=== PATIENT | female | born 1945 | race Caucasian/White ===

== ENCOUNTER → 2023-11-04 11:24 | Outpatient (REF) | payer MEDICARE, SELFPAY ==
[2023-11-04 17:59] LABS: Urine Albumin Negative (Neg - Trace); Urine Bilirubin Negative (Negative); Urine Character Slightly Cloudy (Clear); Urine Color Yellow; Urine Glucose Negative (Negative); Urine Ketone Negative (Negative); Urine Leukocyte 2+ (Negative); Urine Nitrite Positive (Negative); Urine Occult Blood Negative (Negative); Urine Urobilinogen Negative (Neg - 1+)
[2023-11-04 18:22] LABS: Urine Bacteria Few (Negative); Urine Red Blood Cell 0-2 /HPF (0-2)
== END ==
LOC: CLAB 11:24
PROVIDERS: ATTENDING PHYSICIAN Obstetrics & Gynecology
DX: N39.0 Urinary tract infection, site not specified (principal)
CPT/HCPCS: 81003; 81015; 87071; 87086; 87186

== ENCOUNTER → 2023-11-26 16:20 | Outpatient (REF) | payer MEDICARE, SELFPAY | LOC: REG 16:20 | PROVIDERS: ATTENDING PHYSICIAN Obstetrics & Gynecology; FAMILY PHYSICIAN Internal Medicine | DX: N39.0 Urinary tract infection, site not specified (principal) | CPT/HCPCS: 87077; 87086; 87186 ==

== ENCOUNTER → 2023-12-30 11:56 | Outpatient (REF) | payer MEDICARE, SELFPAY ==
[2023-12-30 12:27] LABS: Urine Albumin Negative (Neg - Trace); Urine Bilirubin Negative (Negative); Urine Character Clear (Clear); Urine Color Yellow; Urine Glucose Negative (Negative); Urine Ketone Negative (Negative); Urine Leukocyte Trace (Negative); Urine Nitrite Negative (Negative); Urine Occult Blood Negative (Negative); Urine Urobilinogen Negative (Neg - 1+); Urine pH 6.5 (5.0-9.0)
[2023-12-30 12:47] LABS: Urine Red Blood Cell 0-2 /HPF (0-2); Urine White Cell 0-2 /HPF (0-5)
== END ==
LOC: REG 11:56
PROVIDERS: ATTENDING PHYSICIAN Obstetrics & Gynecology; FAMILY PHYSICIAN Internal Medicine
DX: N39.0 Urinary tract infection, site not specified (principal)
CPT/HCPCS: 36415; 81003; 81015; 87086

== ENCOUNTER → 2024-02-04 12:07 | Outpatient (REF) | payer MEDICARE, SELFPAY ==
[2024-02-04 13:49] LABS: Urine Albumin Negative (Neg - Trace); Urine Bilirubin Negative (Negative); Urine Character Clear (Clear); Urine Color Yellow; Urine Glucose Negative (Negative); Urine Ketone Negative (Negative); Urine Leukocyte 2+ (Negative); Urine Nitrite Negative (Negative); Urine Occult Blood Negative (Negative); Urine Urobilinogen Negative (Neg - 1+); Urine pH 6.5 (5.0-9.0)
[2024-02-04 13:57] LABS: Urine Bacteria Many (Negative); Urine Red Blood Cell 0-2 /HPF (0-2); Urine White Cell 30-40 /HPF (0-5)
== END ==
LOC: REG 12:07
PROVIDERS: ATTENDING PHYSICIAN Obstetrics & Gynecology; FAMILY PHYSICIAN Internal Medicine
DX: N39.0 Urinary tract infection, site not specified (principal)
CPT/HCPCS: 81003; 81015; 87077; 87086; 87186

== ENCOUNTER → 2024-03-07 15:15 | Outpatient (REF) | payer MEDICARE, SELFPAY ==
[2024-03-07 16:21] LABS: Urine Albumin Negative (Neg - Trace); Urine Bilirubin Negative (Negative); Urine Character Clear (Clear); Urine Color Yellow; Urine Glucose Negative (Negative); Urine Ketone Negative (Negative); Urine Leukocyte 2+ (Negative); Urine Nitrite Negative (Negative); Urine Occult Blood 1+ (Negative); Urine Specific Gravity 1.015 (<1.030); Urine Urobilinogen Negative (Neg - 1+)
[2024-03-07 16:52] LABS: Urine Bacteria Moderate (Negative); Urine White Cell 50-60 /HPF (0-5)
== END ==
LOC: REG 15:15
PROVIDERS: ATTENDING PHYSICIAN Obstetrics & Gynecology
DX: N39.0 Urinary tract infection, site not specified (principal)
CPT/HCPCS: 81003; 81015; 87086; 87088; 87186

== ENCOUNTER → 2024-05-01 11:17 | Outpatient (REF) | payer MEDICARE, SELFPAY | LOC: EMG 11:17 | PROVIDERS: ATTENDING PHYSICIAN Orthopaedic Surgery Hand Surgery; FAMILY PHYSICIAN Internal Medicine | DX: G56.03 Carpal tunnel syndrome, bilateral upper limbs (principal); M48.02 Spinal stenosis, cervical region; R20.2 Paresthesia of skin | CPT/HCPCS: 95886; 95911 ==

== ENCOUNTER → 2024-07-06 11:22 | Outpatient (REF) | payer MEDICARE, SELFPAY | LOC: CLAB 11:22 | PROVIDERS: ATTENDING PHYSICIAN Obstetrics & Gynecology | DX: N39.0 Urinary tract infection, site not specified (principal) | CPT/HCPCS: 87086 ==

== ENCOUNTER → 2024-07-19 09:14 | Outpatient (REF) | payer MEDICARE, SELFPAY ==
[2024-07-19 11:11] LABS: Hematocrit 40.9 % (37.0-47.0); Hemoglobin 13.2 g/dL (12.0-16.0); Mean Corp Hgb Conc. 32.3 g/dL (33.0-37.0); Mean Corpuscular Hgb 30.6 pg (27.0-31.0); Mean Corpuscular Volume 94.9 fL (81.0-99.0); Mean Platelet Volume 12.5 fL (7.4-10.4); Platelet Count 174 10^3/uL (130-400); Red Blood Cell Count 4.31 10^6/uL (4.20-5.40); Red Cell Dist. Width 13.8 % (11.5-14.5); White Blood Cell Count 7.3 10^3/uL (4.8-10.8)
[2024-07-19 11:38] LABS: Blood Urea Nitrogen 18 mg/dl (7-17); Calcium 10.3 mg/dl (8.4-10.2); Carbon Dioxide 23 mmol/L (22-30); Chloride 104 mmol/L (98-107); Glucose 90 mg/dl (70-99); Potassium 4.6 mmol/L (3.5-5.1); Sodium 136 mmol/L (135-145); eGFR > 60.00
== END ==
LOC: SDSPAT 09:14
PROVIDERS: ATTENDING PHYSICIAN Obstetrics & Gynecology; FAMILY PHYSICIAN Internal Medicine
DX: Z01.818 Encounter for other preprocedural examination (principal)
CPT/HCPCS: 36415; 80048; 85027; 86850; 86900; 86901; 93005

== ENCOUNTER 2024-07-31 06:16 | Day surgery (SDC) | payer MEDICARE, SELFPAY ==
[2024-07-19 13:40] VITALS: BMI 22.2
--- NOTE | 2024-07-20 15:22 | PTCARENOTE ---
Abnormal ECG from 07/19/24, reviewed by Dr Santos, no further intervention requested.
[2024-07-31] VITALS (10 sets, daily range): BP systolic 126–156; BP diastolic 69–94; BMI 22.2
[2024-07-31] MEDS: NORMOSOL-R/PLASMALYTE-A 1000 IV (08:35)
[2024-07-31] MEDS: Pyridium 200 MG PO (08:37)
== END 2024-07-31 14:30 | disposition home or self-care (01) ==
LOC: SDS 06:16
PROVIDERS: ATTENDING PHYSICIAN Obstetrics & Gynecology
DX: N81.2 Incomplete uterovaginal prolapse (principal); N39.3 Stress incontinence (female) (male)
CPT/HCPCS: 57282; 57260; C1713

== ENCOUNTER → 2024-12-18 10:29 | Outpatient (REF) | payer MEDICARE, SELFPAY ==
[2024-12-18 11:42] LABS: Hematocrit 41.9 % (37.0-47.0); Hemoglobin 13.6 g/dL (12.0-16.0); Mean Corp Hgb Conc. 32.5 g/dL (33.0-37.0); Mean Corpuscular Volume 94.2 fL (81.0-99.0); Nucleated Red Blood Cells % 0 %; Platelet Count 189 10^3/uL (130-400); Red Cell Dist. Width 13.6 % (11.5-14.5)
[2024-12-18 12:19] LABS: ALT (SGPT) 17 U/L (0-35); AST (SGOT) 21 U/L (14-36); Albumin 4.2 g/dl (3.5-5.0); Alkaline Phosphatase 114 U/L (38-126); Blood Urea Nitrogen 19 mg/dl (7-17); Calcium 10.0 mg/dl (8.4-10.2); Carbon Dioxide 26 mmol/L (22-30); Chloride 108 mmol/L (98-107); Glucose 94 mg/dl (70-99); Potassium 4.6 mmol/L (3.5-5.1); Sodium 140 mmol/L (135-145); Total Protein 6.7 g/dl (6.3-8.2); eGFR > 60.00
== END ==
LOC: REG 10:29
PROVIDERS: ATTENDING PHYSICIAN Obstetrics & Gynecology; FAMILY PHYSICIAN Internal Medicine
DX: N39.0 Urinary tract infection, site not specified (principal); I10 Essential (primary) hypertension; E78.00 Pure hypercholesterolemia, unspecified
CPT/HCPCS: 36415; 80053; 84443; 85025; 87086

== ENCOUNTER → 2024-12-21 09:14 | Outpatient (REF) | payer MEDICARE, SELFPAY ==
[2024-12-21 10:39] LABS: HDL Cholesterol 58 mg/dl; LDL Cholesterol, Calculated 91 mg/dl; Very Low Density Lipoprotein 11 mg/dl (0-30)
== END ==
LOC: REG 09:14
PROVIDERS: ATTENDING PHYSICIAN Internal Medicine
DX: I10 Essential (primary) hypertension (principal); E78.00 Pure hypercholesterolemia, unspecified
CPT/HCPCS: 36415; 80061

== ENCOUNTER 2025-02-01 12:04 | Outpatient (RCR) | payer MEDICARE, SELFPAY | END 2025-02-01 23:59 | disposition home or self-care (01) | LOC: RPT 12:04 | PROVIDERS: ATTENDING PHYSICIAN Orthopaedic Surgery; FAMILY PHYSICIAN Internal Medicine | DX: M54.16 Radiculopathy, lumbar region (principal); Z73.6 Limitation of activities due to disability; M51.370 Other intervertebral disc degeneration, lumbosacral region with discogenic back pain only; M79.604 Pain in right leg | CPT/HCPCS: 97110; 97112; 97162 ==

== ENCOUNTER 2025-02-02 17:20 | Emergency (ER) | payer MEDICARE, SELFPAY ==
[2025-02-02 17:33] VITALS: BP 123/84
--- NOTE | 2025-02-02 20:57 | ED.GENMED ---
History of Present Illness
General
Chief Complaint: Fall
Time Seen by Provider: 02/02/25 20:28
History of Present Illness
History of Present Illness:
79-year-old female presents to the emergency department for evaluation of right knee pain and left elbow pain after a mechanical fall. States she was turning in her kitchen when she lost her balance and fell. She was able to ambulate after taking
naproxen this afternoon however pain worsened throughout the day. Has arthritis of multiple joints and has chronic right knee swelling as a result.
Past History
Past History
ED Past Medical History: None
ED Past Surgical History: None
Review of Systems
Review of Systems
Allergies reviewed?: Yes
All Other Systems: ROS reviewed and negative except as documented in HPI and ROS
Phy Exam
Physical Exam
Physical Exam:
GEN: Well appearing, NAD, WDWN
HEENT: Oral mucosa moist, no scleral icterus
Cardiac: Regular rate
Lung: No respiratory distress, no tachypnea
MSK: Right knee effusion noted,, range of motion normal however flexion elicits pain, no crepitus, no obvious laxity. Left elbow appears atraumatic with no swelling or effusion, range of motion is
Skin: Good color, no pallor or jaundice, no rashes
Neuro: AO x3, moves all extremities freely
Psych: Calm, cooperative
Course
Orders/Labs/Results
Orders:
Orders
02/02/25 17:35
CR Elbow - Left Min 3 Views Urgent
Comment:
Reason For Exam: tripped and fell injuring left elbow
Knee, Right 4 or More Views [CR Knee- Right 4 Or More View*] Urgent
Comment:
Reason For Exam: tripped and fell and injuried right knee
02/02/25 20:59
Ibuprofen [Motrin] 600 mg PO NOW STA
Vital Signs
Initial and Last Documented VS:
Initial Vital Signs
Temp Pulse Resp BP Pulse Ox
98.0 F 94 16 123/84 98
02/02/25 17:33 02/02/25 17:33 02/02/25 17:33 02/02/25 17:33 02/02/25 17:33
Last Documented Vital Signs
Temp Pulse Resp BP Pulse Ox
98.0 F 75 16 153/78 97
02/02/25 17:33 02/02/25 21:12 02/02/25 21:12 02/02/25 21:12 02/02/25 21:12
MDM/Problems Addressed
MDM/Problems Addressed:
Right knee and left elbow x-rays independently interpreted by me are negative for acute fracture. She was able to ambulate with support while using a knee immobilizer. Recommend outpatient Ortho follow-up, discussed supportive care
*Pulse Oximetry
SaO2: 98
Oxygen Mode of Delivery: Room air
Patient hypoxic: no
*Critical Care Note
Total Time (30-74mins, 75-104mins- exclusive of procedures): Not Applicable
ED Attending Note
-
Portions of this chart may have been created with voice recognition software.� Occasional wrong word or��sound alike� substitutions may have occurred due to the inherent limitations of voice recognition software.
Discharge Plan
Departure
Patient Disposition: Home (Routine Discharge)
Date of Disposition: 02/02/25
Time of Disposition: 20:59
Patient with high blood pressure during this ER visit?: No
Discharge Problem:
Contusion of right knee, Sprain of elbow, left
Instructions: Preventing falls in adults
Prescriptions:
No Action
multivitamin Tablet
1 tab PO DAILY
latanoprost 0.005 % drops
1 drp RIGHT EYE HS
ascorbic acid (vitamin C) [Vitamin C] 500 mg Tablet
500 mg PO DAILY
losartan 100 mg tablet
100 mg PO DAILY
dorzolamide 2 % drops
1 drp RIGHT EYE BID
Tumeric Curcumin
1 dose PO DAILY
Referrals:
Alejandro Langley MD [Active, Orthopedics]
Activity Restrictions/Additional Instructions:
Continue ibuprofen or naproxen for pain
Follow up with Orthopedics
Use the knee immobilizer when walking for the next week however you can remove for showering/sleeping
Interventions
Interventions:
*Risk Screen - Suicide Last Done: 02/02/25 17:33
*General Assessment Last Done: 02/02/25 21:10
*Neglect/Abuse Screening Last Done: 02/02/25 17:33
*ED- Fall Risk Assessment Last Done: 02/02/25 21:10
*ED COVID-19 Vaccine History Last Done: 02/02/25 21:10
*Nursing Disposition Last Done: 02/02/25 21:17
ED-Musculoskeletal Assessment Last Done: 02/02/25 21:15
ED- Neurological Assessment Last Done: 02/02/25 21:15
ED-Skin Assessment Last Done: 02/02/25 21:15
Discharge Date and Time
Discharge Date/Time: 02/02/25 21:39
Print Language: [id number]
[2025-02-02] MEDS: MOTRIN 600 MG PO (21:07)
[2025-02-02 21:10] VITALS: BMI 24.6
[2025-02-02 21:12] VITALS: BP 153/78
== END 2025-02-02 21:39 | disposition home or self-care (01) ==
LOC: EMR 17:20
PROVIDERS: EMERGENCY PHYSICIAN Emergency Medicine; FAMILY PHYSICIAN Internal Medicine
DX: S53.402A Unspecified sprain of left elbow, initial encounter (principal); S80.01XA Contusion of right knee, initial encounter; W01.0XXA Fall on same level from slipping, tripping and stumbling without subsequent striking against object, initial encounter
CPT/HCPCS: 99283; 29505; 73080; 73564

== ENCOUNTER 2025-02-21 11:24 | Outpatient (RCR) | payer MEDICARE, SELFPAY | END 2025-02-21 23:59 | disposition home or self-care (01) | LOC: RPT 11:24 | PROVIDERS: ATTENDING PHYSICIAN Orthopaedic Surgery; FAMILY PHYSICIAN Internal Medicine | DX: M54.16 Radiculopathy, lumbar region (principal); Z73.6 Limitation of activities due to disability; M51.370 Other intervertebral disc degeneration, lumbosacral region with discogenic back pain only; M79.604 Pain in right leg | CPT/HCPCS: 97112; 97140; 97164; 97530 ==

== ENCOUNTER 2025-03-15 13:17 | Outpatient (RCR) | payer MEDICARE, SELFPAY | END 2025-03-16 07:17 | disposition home or self-care (01) | LOC: RPT 13:17 | PROVIDERS: ATTENDING PHYSICIAN Orthopaedic Surgery; FAMILY PHYSICIAN Internal Medicine | DX: M54.16 Radiculopathy, lumbar region (principal); Z73.6 Limitation of activities due to disability; M51.370 Other intervertebral disc degeneration, lumbosacral region with discogenic back pain only; M79.604 Pain in right leg | CPT/HCPCS: 97112; 97530 ==